=== PATIENT | female | born 1985 | race Caucasian/White ===

== ENCOUNTER 2016-10-11 11:51 | Observation (INO) | payer OTHER ==
[2016-10-11] MEDS ORDERED: ACETAMINOPHEN IV (For NPO) 1,000 MG in SALINE 100 100ML.BAG IVPB STA (13:02)
[2016-10-11] MEDS ORDERED: SODIUM CHLORIDE 0.9% 1,000 ML IV STA ×3 (13:02→14:56)
[2016-10-11] MEDS ORDERED: ONDANSETRON 4 MG/2 ML VIAL IVP STA (13:02)
--- NOTE | 2016-10-11 13:12 | ED ---
General Adult HPI - General Chief complaint: Vaginal Bleeding Stated complaint: POSS MISCARRIAGE Time Seen by Provider: 10/11/16 12:45 Source: patient, RN notes reviewed Mode of arrival: ambulatory - History of Present Illness Initial comments: Patient 31-year-old female who presents emergency room today with a chief complaint of increased vaginal bleeding. She does admit that she was seen here in the emergency room yesterday and diagnosed with a possible miscarriage. States had increased bleeding over the last 2 hours. Patient states she does feel some abdominal cramping. Patient denies any other complaints or symptoms currently. Patient denies any recent fever, chills, shortness of breath, chest pain, back pain, abdominal pain, nausea or vomiting, numbness or tingling, dysuria or hematuria, constipation or diarrhea, headaches or visual changes, or any other complaints. - Related Data Home Medications Medication Instructions Recorded Confirmed No Known Home Medications [No 10/10/16 10/11/16 Known Home Medications] Allergies Allergy/AdvReac Type Severity Reaction Status Date / Time No Known Allergies Allergy Verified 10/11/16 12:50 Review of Systems ROS Statement: Those systems with pertinent positive or pertinent negative responses have been documented in the HPI. ROS Other: All systems not noted in ROS Statement are negative. Past Medical History Past Medical History: No Reported History History of Any Multi-Drug Resistant Organisms: None Reported Past Surgical History: No Surgical Hx Reported Past Psychological History: Anxiety, Depression Smoking Status: Former smoker Past Alcohol Use History: None Reported Past Drug Use History: None Reported General Exam - General Exam Comments Initial Comments: General: The patient is awake and alert, in no distress, and does not appear acutely ill. Eye: Pupils are equal, round and reactive to light, extra-ocular movements are intact. No nystagmus. There is normal conjunctiva bilaterally. No signs of icterus. Ears, nose, mouth and throat: There are moist mucous membranes and no oral lesions. Neck: The neck is supple, there is no tenderness or JVD. Cardiovascular: There is a regular rate and rhythm. No murmur, rub or gallop is appreciated. Respiratory: Lungs are clear to auscultation, respirations are non-labored, breath sounds are equal. No wheezes, stridor, rales, or rhonchi. Gastrointestinal: Normal appearance abdomen. Normal bowel sounds. Abdomen soft on palpation. Patient does have tenderness suprapubic lower abdomen. No rebound tenderness. No guarding. No CVA tenderness. Musculoskeletal: Normal ROM, no tenderness. Strength 5/5. Sensation intact. Pulses equal bilaterally 2+. Neurological: A&O x 3. CN II-XII intact, There are no obvious motor or sensory deficits. Coordination appears grossly intact. Speech is normal. Skin: Skin is warm and dry and no rashes or lesions are noted. Psychiatric: Cooperative, appropriate mood & affect, normal judgment. Course Vital Signs 10/11/16 10/11/16 10/11/16 12:13 13:26 14:21 Temperature 97.7 F 98.8 F Pulse Rate 80 77 74 Respiratory 20 18 20 Rate Blood Pressure 103/66 101/59 105/52 O2 Sat by Pulse 100 98 98 Oximetry - Reevaluation(s) Reevaluation #1: 10/11/16 13:11 Patient's ultrasound from 10/10/2016 shows an irregular intrauterine gestational sac with debris. No evidence of ectopic . Consistent with incomplete or blighted ovum. As read by radiologist Dr. Naranjo. Patient's labs from yesterday were reviewed to show a stable hemoglobin. Beta hCG was 2100. Labs will be repeated are currently pending. Patient will be given a liter bolus states does feel little lightheaded currently. 10/11/16 14:26 Patient reexamined at this time states feeling better after passing large blood clot. Pelvic exam is performed with RN medical bedside. Patient does have large amount of vaginal bleeding currently. Difficult to find site. Patient passing blood clots. Does admit some cramping lower abdomen. Case discussed in detail with attending physician Dr. Chaparro who discussed with on-call RESIDENT[employer] C[employer] OFFICER Dr. Rice who recommends ultrasound at this time. 10/11/16 14:57 Nursing staff did call attending physician Dr. Chaparro into at bedside for patient not feeling well. Blood pressure 80/50. Patient will have another line started. Dr. Chaparro did discuss case with Dr. Enrique at this time will take the patient to the OR. Patient will be typed and crossed for 1 unit at this time to use if needed. Patient is updated at this time and aware of plan. Blood pressure responded to IV fluids feeling better currently 104/59. Medical Decision Making - Lab Data Result diagrams: 10/11/16 13:28 10/11/16 13:28 Lab Results 10/11/16 10/11/16 Range/Units 13:28 13:28 WBC 12.1 H (3.8-10.6) k/uL RBC 3.93 (3.80-5.40) m/uL Hgb 12.9 (11.4-16.0) gm/dL Hct 37.5 (34.0-46.0) % MCV 95.3 (80.0-100.0) fL MCH 32.8 (25.0-35.0) pg MCHC 34.4 (31.0-37.0) g/dL RDW 11.7 (11.5-15.5) % Plt Count 205 (150-450) k/uL Neutrophils % 84 % Lymphocytes % 10 % Monocytes % 4 % Eosinophils % 1 % Basophils % 0 % Neutrophils # 10.1 H (1.3-7.7) k/uL Lymphocytes # 1.2 (1.0-4.8) k/uL Monocytes # 0.5 (0-1.0) k/uL Eosinophils # 0.2 (0-0.7) k/uL Basophils # 0.0 (0-0.2) k/uL Manual Slide Review Performed Poikilocytosis (manual Present Sodium 140 (137-145) mmol/L Potassium 4.1 (3.5-5.1) mmol/L Chloride 104 (98-107) mmol/L Carbon Dioxide 22 (22-30) mmol/L Anion Gap 14 mmol/L BUN 12 (7-17) mg/dL Creatinine 0.55 (0.52-1.04) mg/dL Est GFR (MDRD) Af Amer >60 (>60 ml/min/1.73 sqM) Est GFR (MDRD) Non-Af >60 (>60 ml/min/1.73 sqM) Glucose 123 H (74-99) mg/dL Calcium 9.3 (8.4-10.2) mg/dL Total Bilirubin 0.4 (0.2-1.3) mg/dL AST 16 (14-36) U/L ALT 35 (9-52) U/L Alkaline Phosphatase 41 (38-126) U/L Total Protein 6.3 (6.3-8.2) g/dL Albumin 3.7 (3.5-5.0) g/dL HCG, Quant 1434.0 mIU/mL Disposition Clinical Impression: Vaginal bleeding Disposition: ADMITTED IP TO THIS HOSP Condition: Stable Time of Disposition: 14:58
[2016-10-11 13:40] LABS: Basophils % (A) 0 %; CH 32.9; CHCM 34.6; Eosinophils # (A) 0.2 k/uL (0-0.7); Eosinophils % (A) 1 %; HCT 37.5 % (34.0-46.0); HDW 2.15; HGB 12.9 gm/dL (11.4-16.0); Luc # (Auto) 0.14; Luc % (Auto) 1; Lymphocytes # (A) 1.2 k/uL (1.0-4.8); Lymphocytes % (A) 10 %; MCH 32.8 pg (25.0-35.0); MCHC 34.4 g/dL (31.0-37.0); MCV 95.3 fL (80.0-100.0); Mean Platelet Volume 7.7; Monocytes # (A) 0.5 k/uL (0-1.0); Monocytes % (A) 4 %; Neutrophils # (A) 10.1 k/uL (1.3-7.7); Neutrophils % (A) 84 %; RBC 3.93 m/uL (3.80-5.40); RDW 11.7 % (11.5-15.5); WBC 12.1 k/uL (3.8-10.6); WBC (Perox) 13.33
[2016-10-11 13:47] LABS: ALT 35 U/L (9-52); AST 16 U/L (14-36); Alkaline Phosphatase 41 U/L (38-126); Anion Gap 14 mmol/L; Blood Urea Nitrogen 12 mg/dL (7-17); Calcium 9.3 mg/dL (8.4-10.2); Carbon Dioxide 22 mmol/L (22-30); Chloride 104 mmol/L (98-107); Glucose 123 mg/dL (74-99); Non-African American GFR(MDRD) >60 (>60 ml/min/1.73 sqM); Potassium 4.1 mmol/L (3.5-5.1); Sodium 140 mmol/L (137-145); Total Bilirubin 0.4 mg/dL (0.2-1.3); Total Protein 6.3 g/dL (6.3-8.2)
[2016-10-11 14:02] LABS: Manual Review Performed
[2016-10-11] MEDS ORDERED: MORPHINE SULFATE 4 MG/ML SYRINGE IV STA (14:39)
[2016-10-11] MEDS ORDERED: NALOXONE 0.4 MG/ML 1 ML VIAL IV PRN (14:58)
[2016-10-11] MEDS ORDERED: SODIUM CHLORIDE 0.9% 1,000 ML IV ONE (14:58)
[2016-10-11 15:04] LABS: CH 32.8; CHCM 34.4; HCT 30.5 % (34.0-46.0); HDW 2.15; HGB 10.6 gm/dL (11.4-16.0); MCH 33.1 pg (25.0-35.0); MCHC 34.7 g/dL (31.0-37.0); MCV 95.4 fL (80.0-100.0); Mean Platelet Volume 9.2; RBC 3.19 m/uL (3.80-5.40); RDW 11.8 % (11.5-15.5)
--- NOTE | 2016-10-11 15:29 | P.HPOB ---
History of Present Illness H&P Date: 10/11/16 This is a 31-year-old white female 4 para 2011 LMP 06/28/2016 at 14 weeks by dates, 7-6/7 weeks by ultrasound. Patient presented to the emergency room yesterday with a complaint of vaginal bleeding. Ultrasound revealed a 7-6/ 7 week intrauterine gestation, no fetus, debris noted inside a gestational sac consistent with blighted ovum. Adnexa were negative. No free fluid. No evidence of ectopic . For some reason, [facility]. She presents again today with increased vaginal bleeding, lightheadedness and dizziness. She states she is passing clots the size of grapefruit. Hemoglobin is 10.6, pulse 99, blood pressure 80/50. Evaluation is that of an incomplete AB with increased vaginal bleeding. Patient has been counseled regarding D&C and would like to proceed. Past medical history significant for anxiety and depression. Past surgical history negative. Current medications none. ALLERGIES none known. Family history mother age 49 and is healthy, father age 54 is healthy, she has 2 half sisters both of whom are healthy and no brothers. Social history patient for some reason is in the local prison at this time. She was a previous smoker, 1 pack per day for 11 years, quit 30 days ago. She denies alcohol or social drug use. Past obstetric history normal spontaneous vaginal delivery 11 months ago of 8 pound female , another vaginal delivery 2010 of 8 pound female . Patient states she had a previous miscarriage not requiring D&C. On exam this is a pleasant young female, 5 foot 0 inches, 120 pounds, blood pressure 80/50, pulse 99. Chest is clear in all [place]. HEENT examination is essentially negative. Cardiac exam reveals at this time regular rate and rhythm with no murmur click or rub. Abdomen is tender suprapubically, no obvious masses, no rebound or guarding. No CVA tenderness. No extremity edema. Pelvic exam is then performed by the ER staff, and I will defer my pelvic exam to the time of operating room, OR staff present. Impression: 7-6/7 weeks intrauterine consistent with blighted ovum, increased vaginal bleeding and 2 g drop of hemoglobin in the past 24 hours, patient currently symptomatic. Plan: We'll proceed with D&C in the operating room. I reviewed with her the risks benefits and alternatives of this plan. She stands risks of bleeding, infection, perforation or damage to cervix, uterus or indeed any pelvic or abdominal organs. Blood type is Rh+ and therefore aerobic and was not deemed necessary. Questions are answered and I believe the patient understands our plan with no reservation. Past Medical History Past Medical History: No Reported History History of Any Multi-Drug Resistant Organisms: None Reported Past Surgical History: No Surgical Hx Reported Past Psychological History: Anxiety, Depression Smoking Status: Former smoker Past Alcohol Use History: None Reported Past Drug Use History: None Reported Medications and Allergies Home Medications Medication Instructions Recorded Confirmed Type No Known Home Medications [No 10/10/16 10/11/16 History Known Home Medications] Allergies Allergy/AdvReac Type Severity Reaction Status Date / Time No Known Allergies Allergy Verified 10/11/16 12:50 Exam - Vital Signs Vital signs: Vital Signs Temp Pulse Resp BP Pulse Ox 10/11/16 15:02 98.2 F 73 20 111/64 99 10/11/16 14:55 73 22 101/58 10/11/16 14:44 77 22 82/45 100 10/11/16 14:21 74 20 105/52 98 10/11/16 13:26 98.8 F 77 18 101/59 98 10/11/16 12:13 97.7 F 80 20 103/66 100 Intake and Output 10/11/16 10/11/16 10/11/16 06:59 14:59 22:59 Other: Weight 54.431 kg Patient Weight 10/12/16 06:59 Weight 54.431 kg Results Result Diagrams: 10/11/16 14:50 10/11/16 13:28 Abnormal Lab Results - Last 24 Hours (Table) 10/11/16 10/11/16 10/11/16 Range/Units 13:28 13:28 14:50 WBC 12.1 H 16.0 H (3.8-10.6) k/uL RBC 3.19 L (3.80-5.40) m/uL Hgb 10.6 L (11.4-16.0) gm/dL Hct 30.5 L (34.0-46.0) % Neutrophils # 10.1 H (1.3-7.7) k/uL Glucose 123 H (74-99) mg/dL
[2016-10-11] MEDS ORDERED: IV FLUID CONTINUATION 1,000 ML IV ONE ×2 (15:49)
[2016-10-11] MEDS ORDERED: fentaNYL (PF) 50 MCG/ML 2 ML AMP ONE (15:52)
[2016-10-11] MEDS ORDERED: PHENYLEPHRINE-0.9% NACL SYG 1 MG/10 ML SYRINGE ONE (15:52)
[2016-10-11] MEDS ORDERED: PROPOFOL 10 MG/ML 20 ML VIAL IV ONE (15:52)
[2016-10-11] MEDS ORDERED: KETOROLAC 30 MG/ML 1 ML VIAL ONE (15:52)
[2016-10-11] MEDS ORDERED: LIDOCAINE 1% INJ 10MG/ML (20 ML MDV) ONE (15:52)
[2016-10-11] MEDS ORDERED: MIDAZOLAM 2 MG/2 ML VIAL ONE (15:52)
--- NOTE | 2016-10-11 16:15 | P.OP ---
Date of Procedure: 10/11/16 Preoperative Diagnosis: Missed AB at 7-6/7 weeks' gestation, Rh+ Postoperative Diagnosis: Same Procedure(s) Performed: Suction D&C Implants: Anesthesia: GETA Surgeon: Cammie Rice Estimated Blood Loss (ml): 300 IV fluids (ml): 600 Urine output (ml): 200 Pathology: other (Intrauterine tissue) Condition: stable Disposition: PACU Indications for Procedure: Operative Findings: Description of Procedure: Patient is brought to the operating suite where a general anesthetic is administered without difficulty. She is placed in the dorsal lithotomy position. The cervix, vagina, perineum and periurethral areas are all prepped and draped in usual sterile fashion. The appropriate timeout is performed to assure proper patient and procedural identification. Antibiotics are not deemed necessary. Rh+ status is noted. Admit patient under anesthesia reveals a large amount of blood clot in the vagina, with tissue protruding from the cervical os. The cervix is approximately 2-3 cm dilated spontaneously. The uterus is approximate 8 week size, anteverted anteflex, mobile, no adnexal masses are noted. The weighted speculum was placed into the vagina. The uterus sounds to a depth of 8 cm. The largest dilator is easily passed. A #8 curved currette is used and the entire intrauterine cavity is evacuated. A moderate to large amount of tissue is obtained. A medium sharp curette is used to assure complete evacuation of the cavity, and no intrauterine septa fibroids or polyps are appreciated. The # 8 curved currette is once again placed to the dome of the fundus and the uterus is noted to be completely evacuated. All sponge needle and instrument counts are correct at the end of the procedure. Patient is brought back to the recovery room in stable condition with a blood pressure of 116/64, respirations 16, 100% O2 saturation, pulse 108. She is given Toradol prior to leaving the operative suite. She will be discharged home from recovery when stable. She will follow-up in the office with me in 2 weeks. Ibuprofen can be used as needed for pain.
[2016-10-11 18:08] VITALS: RESP 16
[2016-10-11 19:32] VITALS: BP 98/54; PULSE 94; TEMP 97.3
== END 2016-10-11 20:00 | disposition home or self-care (01) ==
LOC: EC 11:51 → 4FBP 15:02
PROVIDERS: ADMIT Obstetrics & Gynecology; ATTEND Obstetrics & Gynecology
DX: O02.0 Blighted ovum and nonhydatidiform mole (principal); Z87.891 Personal history of nicotine dependence; Z3A.01 Less than 8 weeks gestation of pregnancy
CPT/HCPCS: 36415; 86900; 86901; 88305; 80053; 85025; 85027; 86850; 86920; 84702; 99284; 96374; 96361; 59812; G0378; J2250; J2405; J2001; J3010; J1885; J0131; J2370; J2704

== ENCOUNTER 2025-04-15 19:52 | Observation (INO) | payer OTHER ==
--- NOTE | 2025-04-15 19:59 | ED ---
Chest Pain HPI - General Stated Complaint: Chest Pain Time Seen by Provider: 04/15/25 19:56 Source: RN notes reviewed, old records reviewed Mode of arrival: ambulatory Limitations: no limitations - History of Present Illness Initial Comments: This is a 39-year-old female to the ER for evaluation today. Patient has multiple complaints today chest pain dizziness weakness not feeling well nausea and feelings of uneasy some confusion but persistent dizziness and chest pain chest pain mainly for the last 3 weeks. Patient states she has had prior evaluations without finding what is the cause of her chest pain today. Patient also has severe dizziness and off-balance MD Complaint: chest pain, other (Dizziness) -: week(s) Pain Location: substernal Pain Radiation: none Severity: moderate Severity scale (1-10): 5 Consistency: constant Improves With: nothing Worsens With: nothing Anginal Symptoms: nausea, sense of impending doom Other Symptoms: palpitations Treatments Prior to Arrival: none - Related Data Home Medications Medication Instructions Recorded Confirmed Escitalopram [Lexapro] 5 mg PO DAILY 04/16/25 04/16/25 Omeprazole [PriLOSEC] 20 mg PO DAILY 04/16/25 04/16/25 Propranolol [Inderal] 20 mg PO BID 04/16/25 04/16/25 Allergies Allergy/AdvReac Type Severity Reaction Status Date / Time No Known Allergies Allergy Verified 04/16/25 08:09 Review of Systems ROS Statement: Those systems with pertinent positive or pertinent negative responses have been documented in the HPI. ROS Other: All systems not noted in ROS Statement are negative. Past Medical History Past Medical History: No Reported History History of Any Multi-Drug Resistant Organisms: None Reported Past Surgical History: No Surgical Hx Reported Past Psychological History: Anxiety, Depression Past Alcohol Use History: None Reported Past Drug Use History: None Reported General Exam General appearance: alert, in no apparent distress Head exam: Present: atraumatic, normocephalic, normal inspection Eye exam: Present: normal appearance, PERRL, EOMI. Absent: scleral icterus, conjunctival injection, periorbital swelling ENT exam: Present: normal exam, mucous membranes moist Neck exam: Present: normal inspection. Absent: tenderness, meningismus, lymphadenopathy Respiratory exam: Present: normal lung sounds bilaterally. Absent: respiratory distress, wheezes, rales, rhonchi, stridor Cardiovascular Exam: Present: regular rate, normal rhythm, normal heart sounds. Absent: systolic murmur, diastolic murmur, rubs, gallop, clicks GI/Abdominal exam: Present: soft, normal bowel sounds. Absent: distended, tenderness, guarding, rebound, rigid Extremities exam: Present: normal inspection, full ROM, normal capillary refill. Absent: tenderness, pedal edema, joint swelling, calf tenderness Back exam: Present: normal inspection Neurological exam: Present: alert, oriented X3, CN II-XII intact Psychiatric exam: Present: normal affect, normal mood Skin exam: Present: warm, dry, intact, normal color. Absent: rash Course Vital Signs 04/15/25 04/15/25 04/16/25 20:10 22:36 05:46 Temperature 98.2 F Pulse Rate 62 52 L 65 Respiratory 18 18 16 Rate Blood Pressure 105/72 118/66 104/69 O2 Sat by Pulse 94 L 94 L 96 Oximetry 04/16/25 04/16/25 04/16/25 07:58 10:18 11:42 Temperature 98.0 F Pulse Rate 69 75 86 Respiratory 20 18 18 Rate Blood Pressure 128/89 111/71 131/83 O2 Sat by Pulse 96 95 98 Oximetry - Reevaluation(s) Reevaluation #1: 04/15/25 22:46 Medical records reviewed Reevaluation #2: 04/15/25 22:46 Patient is acutely intoxicated, complaining of severe anxiety persistent chest pain and dizziness Reevaluation #3: 04/15/25 22:46 Patient informed of results and questions answered Reevaluation #4: Was pt. sent in by a medical professional or institution (, PA, [employer] OFF[employer]ER, urgent care, hospital, or senior living...) When possible be specific @ -no Did you speak to anyone other than the patient for history (EMS, parent, family, police, friend...)? What history was obtained from this source @ -no Did you review nursing and triage notes (agree or disagree)? Why? @ -agree Are old charts reviewed (outside hosp., previous admission, EMS record, old EKG, old radiological studies, urgent care reports/EKG's, senior living records)? Report findings @ -yes Differential Diagnosis (chest pain, altered mental status, abdominal pain women, abdominal pain men, vaginal bleeding, weakness, fever, dyspnea, syncope, headache, dizziness, GI bleed, back pain, seizure, CVA, palpatations, mental health, musculoskeletal)? @ -prior EKG interpreted by me (3pts min.). @ -no X-rays interpreted by me (1pt min.). @ -no CT interpreted by me (1pt min.). @ -yes negative for acute disease U/S interpreted by me (1pt. min.). @ -no What testing was considered but not performed or refused? (CT, X-rays, U/S, labs)? Why? @ -none What meds were considered but not given or refused? Why? @ -none Did you discuss the management of the patient with other professionals (professionals i.e. Dr., PA, [employer] OFFICER, lab, RT, psych nurse, social organization professor, shipmaster, teacher, eeo officer, case therapist)? Give summary @ -no Was smoking cessation discussed for >3mins.? @ -no Was critical care preformed (if so, how long)? @ -no Were there social determinants of health that impacted care today? How? (Homelessness, low income, unemployed, alcoholism, drug addiction, transportation, low edu. Level, literacy, decrease access to med. care, alf, re hab)? @ -none Was there de-escalation of care discussed even if they declined (Discuss DNR or withdrawal of care, Hospice)? DNR status @ -no What co-morbidities impacted this encounter? (DM, HTN, Smoking, COPD, CAD, Cancer, CVA, ARF, Chemo, Hep., AIDS, mental health diagnosis, sleep apnea, morbid obesity)? @ -none Was patient admitted / discharged? Hospital course, mention meds given and route, prescriptions, significant lab abnormalities, going to OR and other pertinent info. @ - 39 female will be admitted for severe acute alcohol intoxication chest pain and dizziness Admitted Undiagnosed new problem with uncertain prognosis? @ -no Drug Therapy requiring intensive monitoring for toxicity (Heparin, Nitro, Insulin, Cardizem)? @ -no Were any procedures done? @ -no Diagnosis/symptom? @ -Alcohol intoxication Acute, or Chronic, or Acute on Chronic? @ -Acute Uncomplicated (without systemic symptoms) or Complicated (systemic symptoms)? @ -Complicated Side effects of treatment? @ -no Exacerbation, Progression, or Severe Exacerbation? @ -exacerbation Poses a threat to life or bodily function? How? (Chest pain, [place], [place], pneumonia, PE, COPD, DKA, ARF, appy, cholecystitis, CVA, Diverticulitis, Homicidal, Suicidal, threat to staff... and all critical care pts) @ -yes severe intoxication Reevaluation #5: Differential Chest Pain: Stable Angina, Unstable Angina, STEMI, NSTEMI Aortic Dissection, Pneumothorax, Musculoskeletal, Esophageal Spasm GERD, Cholecystitis, Pancreatitis, Zoster, this is not meant to be an all-inclusive list. Differential Dizziness: Benign paroxysmal positional Vertigo, Meniere's disease, otitis media, acoustic neuroma, vertebrobasilar insufficiency, cerebellar stroke, encephalitis, hypovolemic, arrhythmia, coronary artery syndrome, anemia, this is not meant to be an all-inclusive list - Consultations Consultation #1: Spoke with sound who agrees to admit this patient Chest Pain MDM - MDM 39 female will be admitted for severe acute alcohol intoxication chest pain and dizziness Disposition Clinical Impression: Alcoholic intoxication, Dizziness, Chest pain Disposition: ADMITTED IP TO THIS HOSP Condition: Stable Is patient prescribed a controlled substance at d/c from ED?: No Time of Disposition: 22:10
[2025-04-15] MEDS: ONDANSETRON 4 MG/2 ML VIAL IVP STA (20:44)
[2025-04-15] MEDS: SODIUM CHLORIDE 0.9% 500 ML 500 ML IV STA (20:44)
[2025-04-15] MEDS: SODIUM CHLORIDE 0.9% 1,000 ML IV STA (20:44)
[2025-04-15 20:57] LABS: Basophils # (A) 0.03 10*3/uL (0.00-0.10); Basophils % (A) 0.4 %; Eosinophils # (A) 0.17 10*3/uL (0.04-0.35); Eosinophils % (A) 2.4 %; HCT 40.7 % (37.2-46.3); HGB 14.3 g/dL (12.0-15.0); Lymphocytes # (A) 2.54 10*3/uL (0.90-5.00); Lymphocytes % (A) 36.2 %; MCH 32.5 pg (27.0-32.0); MCHC 35.1 g/dL (32.0-37.0); MCV 92.5 fL (80.0-97.0); Monocytes # (A) 0.59 10*3/uL (0.20-1.00); Monocytes % (A) 8.4 %; Neutrophils # (A) 3.67 10*3/uL (1.80-7.70); Neutrophils % (A) 52.5 %; Platelet Count 279 10*3/uL (140-440); RBC 4.40 10*6/uL (4.10-5.20); RDW 12.4 % (11.5-14.5); WBC 7.01 10*3/uL (4.50-10.00)
--- NOTE | 2025-04-15 21:14 | CT ---
EXAMINATION TYPE: CT brain wo con DATE OF EXAM: 04/15/2025 COMPARISON: CLINICAL INDICATION: Female, 39 years old with history of ams; [facility], pt states she is detoxing. AMS TECHNIQUE: CT of the brain performed without contrast with sagittal and coronal reformats. CT DLP: 1080.[address] CTDI: mGy Automated exposure control for dose reduction was used. FINDINGS: There is no acute intracranial hemorrhage, mass effect, or midline shift identified. The ventricles and sulci are within normal limits in size. The globes are intact and the visualized sinuses are ab ar. IMPRESSION: No acute intracranial hemorrhage, mass effect, or midline shift is seen. [facility], , 04/15/2025 9:12 PM
[2025-04-15 21:21] LABS: ALT 78 U/L (4-34); AST 129 U/L (14-36); African American GFR (CKD) >90 (>60 ml/min/1.73 sqM); Albumin 4.3 g/dL (3.5-5.0); Alkaline Phosphatase 83 U/L (38-126); Anion Gap 13 mmol/L; Blood Urea Nitrogen 14 mg/dL (7-17); Calcium 9.1 mg/dL (8.4-10.2); Carbon Dioxide 26 mmol/L (22-30); Chloride 106 mmol/L (98-107); Glucose 100 mg/dL (74-99); Lipase 152 U/L (23-300); Magnesium 1.9 mg/dL (1.6-2.3); Non-African American GFR(CKD) >90 (>60 ml/min/1.73 sqM); Potassium 4.3 mmol/L (3.5-5.1); Sodium 145 mmol/L (137-145); Total Protein 7.5 g/dL (6.3-8.2)
[2025-04-15] MEDS ORDERED: NALOXONE 0.4 MG/ML 1 ML VIAL IV PRN (22:14)
[2025-04-15] MEDS ORDERED: ONDANSETRON 4 MG/2 ML VIAL IVP PRN (22:14)
[2025-04-15] MEDS ORDERED: LORazepam 1 MG TAB PO PRN ×3 (22:15)
[2025-04-15] MEDS ORDERED: LORazepam 0.5 MG TAB PO PRN (22:15)
[2025-04-15] MEDS ORDERED: LORazepam 1 MG/0.5 ML VIAL IV PRN ×3 (22:15)
[2025-04-15] MEDS: LORazepam 1 MG/0.5 ML VIAL IV STA (22:35)
[2025-04-16] MEDS: SODIUM CHLORIDE 0.9% 1,000 ML IV SCH (00:22)
[2025-04-16] MEDS: LORazepam 1 MG/0.5 ML VIAL IV PRN (03:29)
--- NOTE | 2025-04-16 06:27 | P.HPIM ---
History of Present Illness H&P Date: 04/15/25 Chief Complaint: Trouble with heart, chest heaviness Patient is a 39-year-old female presenting with chest heaviness and feeling unwell for the past 3 weeks. Patient reports feeling dizzy and experiencing nausea and vomiting. Patient also mentions feeling hot, sweaty, and jittery. Patient denies passing out or bleeding from anywhere. Patient reports one instance of black stool last week and recently completed a heavy menstrual period. Patient has been drinking alcohol daily, consuming approximately a fifth per day. Patient's last alcoholic drink was today. Patient reports daily alcohol consumption of approximately a fifth per day. Patient uses vape for smoking. Patient denies use of street drugs. review of systems Pertinent positives as noted in HPI. All other systems were reviewed and are negative Constitutional: Patient reports feeling hot, sweaty, and jittery. Cardiovascular: Patient complains of chest heaviness. Gastrointestinal: Patient reports nausea, vomiting, and one instance of black stool last week. Neurological: Patient reports dizziness. Genitourinary: Patient denies burning when urinating. Respiratory: Patient denies cough or fever. Hematologic: Patient reports recent heavy menstrual period. on exam General: No apparent distress. Pupils equal round reactive to light Cardiovascular: Normal S1, S2, regular rate and rhythm. No murmurs. Respiratory: Audible breath sounds bilaterally, no wheezing, rales, or rhonchi. Gastrointestinal: Abdomen soft, non-tender. Positive bowel sounds. Musculoskeletal: Strength 5/5 in upper and lower extremities bilaterally. Neurological: No leg edema bilaterally. No tenderness on palpation of calf muscles. Peripheral pulses +2 and equal in both dorsalis pedis and radial arteries. Past Medical History Past Medical History: No Reported History History of Any Multi-Drug Resistant Organisms: None Reported Past Surgical History: No Surgical Hx Reported Past Psychological History: Anxiety, Depression Past Alcohol Use History: None Reported Past Drug Use History: None Reported Medications and Allergies Home Medications Medication Instructions Recorded Confirmed Type No Known Home Medications 10/10/16 10/11/16 History Allergies Allergy/AdvReac Type Severity Reaction Status Date / Time No Known Allergies Allergy Verified 10/11/16 12:50 Physical Exam Vitals: Vital Signs Temp Pulse Resp BP Pulse Ox 04/16/25 05:46 65 16 104/69 96 04/15/25 22:36 52 L 18 118/66 94 L 04/15/25 20:10 98.2 F 62 18 105/72 94 L Intake and Output 04/15/25 04/15/25 04/16/25 14:59 22:59 06:59 Other: Weight 77.111 kg Results CBC & Chem 7: 04/15/25 20:49 04/15/25 20:49 Labs: Abnormal Lab Results - Last 24 Hours (Table) 04/15/25 04/15/25 Range/Units 20:49 20:49 MCH 32.5 H (27.0-32.0) pg Glucose 100 H (74-99) mg/dL AST 129 H (14-36) U/L ALT 78 H (4-34) U/L Serum Alcohol 238 H* mg/dL Assessment and Plan Assessment: 1. Acute severe alcohol intoxication - Patient counseled to quit alcohol under medical supervision - Risk of seizures and withdrawal from alcohol - Monitor for withdrawal symptoms - Seizure precautions - Administer thiamine - Provide IV fluids - Symptomatic control of nausea and vomiting with medications Benzo per CIWA scale Thiamine p.o. daily Lipase: Normal. Liver enzymes (AST, ALT): Slightly elevated. Kidney function tests: Normal. Blood levels: Normal. 2. Transaminitis (elevated AST and ALT) - Most likely secondary to alcohol use - Trend liver enzymes Plan: - Encourage alcohol cessation - Provide resources for alcohol rehabilitation - Administer medications to protect the stomach Protonix - Monitor for withdrawal symptoms - Continue supportive care and symptom management - Follow up on liver enzyme trends - Educate patient on risks of continued alcohol use and importance of seeking help for addiction
[2025-04-16] MEDS: LORazepam 1 MG TAB PO PRN (07:53)
[2025-04-16 08:01] VITALS: TEMP 98
[2025-04-16] MEDS: PANTOPRAZOLE 40 MG/10 ML VIAL IV SCH (09:11)
[2025-04-16 10:20] VITALS: RESP 18
--- NOTE | 2025-04-16 10:53 | P.DS ---
Providers Date of admission: 04/15/25 22:14 Expected date of discharge: 04/16/25 Attending physician: Margarita Israel MD Primary care physician: Stated None Hospital Course: Discharge Diagnosis: Alcohol intoxication and active alcoholic upon arrival. Patient clinically sober at this time. Patient provided with outpatient resources available to her including local AA meetings, community resources, outpatient counseling, outpatient therapy list, and inpatient substance abuse facilities available to her. She was strongly encouraged to consider inpatient drug and alcohol rehabilitation facility, she was in agreement to look over the information but not committing to anything at this time. Alcohol abuse Dizziness/lightheadedness, likely secondary to above and resolved. Anxiety and depression Reports of previously experiencing intermittent chest pain and generalized weakness over the past 3 weeks prior to hospitalization. Patient denied feeling chest pain, palpitations, shortness of breath, or any other complaints throughout hospitalization and continues to deny upon discharge. Hospital Course: Is a 39-year-old female with a past medical history of anxiety, depression, and alcohol abuse drinking and reported fifth of liquor daily. She presented to the hospital on 04/15/2025 with a chief complaint of increased anxiety, intermittent chest heaviness, and overall feeling unwell for the past 3 weeks secondary to excessive increased alcohol use and states this is also better accompanied by episodes of dizziness/lightheadedness upon standing. Upon arrival to our facility, patient underwent evaluation in the emergency department. Vital signs upon arrival show blood pressure 105/72, heart rate 62, respiratory rate 18, temp 98.2 F, SpO2 94% on room air. CT brain was negative for acute intracranial process. Labs completed and reviewed. CBC showing elevated MCH of 32.5 otherwise normal findings. BMP unremarkable. Blood glucose 100. Magnesium 1.9. Liver profile showing transaminitis with AST of 129 and ALT of 78. Blood alcohol level was 238. Patient was admitted under our services for alcohol intoxication and dizziness. She was treated with aggressive IV fluid hydration overnight. She reports resolution of previous reported dizziness and denies having any chest pain, palpitations, shortness of breath, nausea, vomiting, or any other complaints. Patient reports just feeling a little sleepy today. Had long discussion at bedside with patient regarding recommendations for inpatient drug and alcohol rehabilitation facility. Patient states that she will accept the information and review, but declining further assistance at this time. Vital signs upon discharge show blood pressure 111/71, heart rate 75, respiratory rate 18, temp 98.0 F, and SpO2 of 95% on room air. CIWA score was 3 at time of discharge. Patient was strongly encouraged to avoid any and all alcohol use. Physical exam: Patient seen and examined at bedside. Vital signs reviewed and stable. General: Nontoxic, no distress and appears stated age. Derm: Skin warm and dry, normal coloration for ethnicity. Head: Atraumatic, normocephalic and symmetric. Eyes: EOM's intact, no lid lag, and anicteric sclera Mouth: no lip lesions, mucus membranes moist Cardiovascular: regular rate and rhythm with normal S1S2, no murmur, positive posterior tibial pulses bilaterally, and cap refill < 2 seconds. Lungs: Respirations even, regular, and unlabored on room air. Lungs CTA bilaterally, no rhonchi, no rales, no wheezing, and no accessory muscle usage. Abdominal: soft, nontender to palpation, no guarding, no appreciable organomegaly Ext: ROM intact. No gross muscle atrophy, no edema, no contractures Neuro: Speech clear, face symmetrical and CN II-XII grossly intact with no noted focal neuro deficits Psych: Alert and oriented to person, place, time, and situation. Appropriate and pleasant affect. A total of 33 minutes of time were spent preparing this complex discharge summary. Pt was discharged on 04/16/2025 at 10:52 AM Patient was seen independently by Nurse Practitioner. This document was prepared using [employer] dictation software. Please allow for errors in logistics director while rare they do occur. Rylan Lion NP rendered care for this patient independently, reviewed the findings and plan as documented in the note above. I did not physically speak with or examine the patient on this date. Patient Condition at Discharge: Stable Plan - Discharge Summary New Discharge Prescriptions: Continue Omeprazole [PriLOSEC] 20 mg PO DAILY Propranolol [Inderal] 20 mg PO BID Escitalopram [Lexapro] 5 mg PO DAILY Discharge Medication List Escitalopram [Lexapro] 5 mg PO DAILY 04/16/25 [History] Omeprazole [PriLOSEC] 20 mg PO DAILY 04/16/25 [History] Propranolol [Inderal] 20 mg PO BID 04/16/25 [History] Follow up Appointment(s)/Referral(s): None,Stated [Primary Care Provider] - 1-2 days Patient Instructions/Handouts: Abuse of Alcohol (DC), Alcohol Withdrawal (DC) Activity/Diet/Wound Care/Special Instructions: Activity: As tolerated. Diet: Resume regular diet. Special Instructions: Strongly recommend avoiding any and all alcohol use. Also as discussed with you at bedside, it is highly recommended that you consider calling an inpatient drug and alcohol rehabilitation facility for further assistance with your detox from alcohol. Thank you for allowing us to participate in your care, it was truly a pleasure having you for our patient!!! Discharge/Stand Alone Forms: AA [facility] [place], Who Do I Call?, Community Resources, Outpatient Counseling, Inp Substance Abuse Facilities, Outpatient Therapy List Discharge Disposition: HOME SELF-CARE
[2025-04-16] MEDS: PANTOPRAZOLE 40 MG TABLET PO SCH (11:40)
[2025-04-16] MEDS: PROPRANOLOL 20 MG TAB PO SCH (11:40)
[2025-04-16] MEDS: ESCITALOPRAM 5 MG TAB PO SCH (11:40)
[2025-04-16 11:43] VITALS: BP 131/83; PULSE 86
== END 2025-04-16 12:14 | disposition home or self-care (01) ==
LOC: EC 19:52 → 5NMEDONC 22:14
PROVIDERS: ADMIT Internal Medicine; ATTEND Internal Medicine
DX: F10.229 Alcohol dependence with intoxication, unspecified (principal); Y90.7 Blood alcohol level of 200-239 mg/100 ml; R07.89 Other chest pain; R00.2 Palpitations; F41.9 Anxiety disorder, unspecified; F32.A Depression, unspecified; R19.5 Other fecal abnormalities; F17.290 Nicotine dependence, other tobacco product, uncomplicated; Z79.899 Other long term (current) drug therapy; Z71.41 Alcohol abuse counseling and surveillance of alcoholic
CPT/HCPCS: 96376; 96361 ×2; 96375 ×2; 96374; 99285; 36415; 80053; 83690; 83735; 84100; 85025; 80320; 70450; G0378 ×2; J2060 ×2; J2405; J2470